=== PATIENT | female | born 1985 | race Caucasian/White ===

== ENCOUNTER 2017-10-07 15:44 | Emergency (ER) | payer MEDICAID ==
[~2017-10-07] VITALS: Ht 152.4 cm; Wt 55.3 kg
[2017-10-07 15:50] VITALS: BP 140/85
--- NOTE | 2017-10-07 15:58 | NUR ---
PT AMBULATES TO BED 3
--- NOTE | 2017-10-07 16:10 | NUR ---
PATIENT PRESENTS TO ED WITH COMPLAINTS OF EPIGASTRIC ABDOMINAL PAIN AND NAUSEA. PATIENT REPORTS IT STARTED 3 DAYS AGO. SKIN IS PINK/WARM/DRY; AAOX4 WITH EVEN AND STEADY GAIT; LUNGS CLEAR BL; HR EVEN AND REGULAR; PT DENIES ANY FEVER, CP, SOB, OR COUGH AT THIS TIME; PATIENT STATES PAIN OF 7/10 AT THIS TIME; VSS; PATIENT POSITIONED FOR COMFORT; HOB ELEVATED; BEDRAILS UP X1; BED DOWN. ER MD MADE AWARE OF PT STATUS.
[2017-10-07] MEDS ORDERED: ALUMINUM HYD/MAG/SIMETHICONE 30 ML, DICYCLOMINE HCL LIQUID 20 MG, LIDOCAINE VISCOUS 2% ... PO ONE ×3 (16:55)
[2017-10-07 17:42] LABS: APPEARANCE,URINE CLEAR (CLEAR); BILIRUBIN,URINE NEGATIVE (NEGATIVE); BLOOD, URINE NEGATIVE (NEGATIVE); LEUKOCYTE ESTERASE ,URINE NEGATIVE (NEGATIVE); NITRITE, URINE NEGATIVE (NEGATIVE); UGLUCOSE NEGATIVE (NEGATIVE)
[2017-10-07 17:43] LABS: COLOR,URINE STRAW (YELLOW)
[2017-10-07] MEDS ORDERED: ONDANSETRON 4 MG ODT PO ONE (19:20)
--- NOTE | 2017-10-07 19:20 | NUR ---
Pt report given to SHAD[facility]. Transfer of care at this time.
[2017-10-07 19:50] VITALS: BP 140/85
--- NOTE | 2017-10-07 19:50 | NUR ---
Patient discharged with v/s stable. Written and verbal after care instructions given and explained. Patient alert, oriented and verbalized understanding of instructions. Ambulatory with steady gait. All questions addressed prior to discharge. ID band removed. Patient advised to follow up with PMD. Rx of PRILOSEC given. Patient educated on indication of medication including possible reaction and side effects. Opportunity to ask questions provided and answered.
== END 2017-10-07 19:50 | disposition home or self-care (01) ==
LOC: MED 15:44
DX: K29.70 Gastritis, unspecified, without bleeding (principal)
CPT/HCPCS: 36415; 81003; 81025; 84703; 99284; S0119